=== PATIENT | male | born 1940 | race Caucasian/White ===

== ENCOUNTER → 2020-06-29 | Outpatient (CLI) | payer OTHER ==
[~2020-06-29] MED LIST: ALDACTONE25 MG PO; ATENOLOL50 MG PO; BUSPAR 10MG10 MG PO; CATAPRES0.2 MG PO; ELIQUIS2.5 MG PO; ELIQUIS5 MG PO; FLOMAX 0.4 MG0.4 MG PO; HYDRALAZINE HC100 MG PO; HYDRALAZINE HCL25 MG PO; ISOSORBIDE MONO30 MG PO; LEXAPRO TAB 1010 MG PO; LISINOPRIL2.5 MG PO; MIRAPEX0.25 MG PO; NORCO 5-325 TA1 EACH PO; NOVOLOG FL100 UNIT/1 INJ; NOVOLOG FL100 UNIT/1 SC; PRIMIDONE50 MG PO; PROSCAR 5 MG TAB5 MG PO; SODIUM BICARBO650 M1 PO; SYNTHROID50 MCG PO; TENORMIN50 MG PO; TRESIBA SC; TRESIBA100 UNIT/1 SQ; VIBRAMYCIN 100100 MG PO
[2020-06-29 09:37] LABS: HEMOGLOBIN 13.6 gm/dl (14.0-17.5); RED BLOOD COUNT 4.09 M/UL (4.20-5.50)
[2020-06-30 11:14] LABS: CREATININE, URINE 133.2 mg/dL (Not Estab.)
== END ==
LOC: LAB 08:47
PROVIDERS: Nurse Practitioner Family
DX: Z12.5 Encounter for screening for malignant neoplasm of prostate (principal); E11.22 Type 2 diabetes mellitus with diabetic chronic kidney disease; I12.9 Hypertensive chronic kidney disease with stage 1 through stage 4 chronic kidney disease, or unspecified chronic kidney disease; N18.9 Chronic kidney disease, unspecified; I48.91 Unspecified atrial fibrillation; E03.9 Hypothyroidism, unspecified
CPT/HCPCS: 36415; 80053; 80061; 82043; 82570; 83036; 83970; 84436; 84443; 84480; 85025; G0103

== ENCOUNTER → 2020-07-09 | Outpatient (CLI) | payer OTHER ==
[2020-07-10 10:13] LABS: CREATININE, URINE 104.4 mg/dL (Not Estab.)
== END ==
LOC: LAB 10:10
PROVIDERS: Nurse Practitioner Family
DX: E87.6 Hypokalemia (principal); N18.30 Chronic kidney disease, stage 3 unspecified; E21.3 Hyperparathyroidism, unspecified; N25.81 Secondary hyperparathyroidism of renal origin
CPT/HCPCS: 36415; 80069; 82043; 82570; 83970; 84156

== ENCOUNTER → 2020-08-25 | Outpatient (CLI) | payer OTHER | LOC: RAD 09:25 | DX: M25.562 Pain in left knee (principal); M25.561 Pain in right knee; R60.0 Localized edema; M17.0 Bilateral primary osteoarthritis of knee | CPT/HCPCS: 73564 ==

== ENCOUNTER → 2020-10-07 | Outpatient (CLI) | payer OTHER ==
[2020-10-08 11:13] LABS: CREATININE, URINE 58.7 mg/dL (Not Estab.)
== END ==
LOC: LAB 07:10
PROVIDERS: Internal Medicine Nephrology
DX: N18.30 Chronic kidney disease, stage 3 unspecified (principal)
CPT/HCPCS: 36415; 80069; 82043; 82570; 84156

== ENCOUNTER → 2020-10-22 | Outpatient (CLI) | payer OTHER ==
[2020-10-22 09:17] LABS: HEMOGLOBIN 13.3 gm/dl (14.0-17.5); RED BLOOD COUNT 3.97 M/UL (4.20-5.50); WHITE BLOOD COUNT 6.7 K/UL (4.5-11.0)
[2020-10-23 07:11] LABS: THYROXINE (T4) 5.9 ug/dL (4.5-12.0); VITAMIN D, 25-HYDROXY 19.1 ng/mL (30.0-100.0)
[2020-10-23 10:14] LABS: CREATININE, URINE 74.7 mg/dL (Not Estab.)
== END ==
LOC: LAB 08:10
PROVIDERS: Nurse Practitioner Family
DX: I12.9 Hypertensive chronic kidney disease with stage 1 through stage 4 chronic kidney disease, or unspecified chronic kidney disease (principal); E11.22 Type 2 diabetes mellitus with diabetic chronic kidney disease; N18.30 Chronic kidney disease, stage 3 unspecified; E11.65 Type 2 diabetes mellitus with hyperglycemia; E11.649 Type 2 diabetes mellitus with hypoglycemia without coma; Z12.5 Encounter for screening for malignant neoplasm of prostate; I48.91 Unspecified atrial fibrillation; E87.6 Hypokalemia; E03.9 Hypothyroidism, unspecified; R60.9 Edema, unspecified
CPT/HCPCS: 36415; 80053; 80061; 81001; 82043; 82570; 83036; 84436; 84443; 84480; 85025; G0103

== ENCOUNTER → 2021-01-07 | Outpatient (CLI) | payer OTHER ==
[2021-01-08 13:14] LABS: CREATININE, URINE 52.9 mg/dL (Not Estab.)
== END ==
LOC: LAB 07:13
PROVIDERS: Internal Medicine Nephrology
DX: N18.30 Chronic kidney disease, stage 3 unspecified (principal)
CPT/HCPCS: 36415; 80069; 82043; 82570; 84156

== ENCOUNTER 2021-03-23 10:33 | Emergency (ER) | payer OTHER ==
[2021-03-23 12:23] LABS: HEMOGLOBIN 15.6 gm/dl (14.0-17.5); RED BLOOD COUNT 4.62 M/UL (4.20-5.50); WHITE BLOOD COUNT 10.1 K/UL (4.5-11.0)
[2021-03-23 12:47] LABS: BUN/CREATININE RATIO 13 (0-10)
== END 2021-03-23 14:03 | disposition home or self-care (01) ==
LOC: ER1 10:33
PROVIDERS: Physician Assistant
DX: R07.9 Chest pain, unspecified (principal); I48.91 Unspecified atrial fibrillation; E03.9 Hypothyroidism, unspecified; I12.9 Hypertensive chronic kidney disease with stage 1 through stage 4 chronic kidney disease, or unspecified chronic kidney disease; E11.22 Type 2 diabetes mellitus with diabetic chronic kidney disease; E78.5 Hyperlipidemia, unspecified; N18.9 Chronic kidney disease, unspecified; Z90.49 Acquired absence of other specified parts of digestive tract; Z79.899 Other long term (current) drug therapy
CPT/HCPCS: 71045; 80053; 82550; 82553; 83874; 84484; 85025; 93005; 99285

== ENCOUNTER → 2021-04-09 | Outpatient (CLI) | payer OTHER ==
[2021-04-09 08:24] LABS: HEMOGLOBIN 14.1 gm/dl (14.0-17.5); RED BLOOD COUNT 4.37 M/UL (4.20-5.50); WHITE BLOOD COUNT 8.8 K/UL (4.5-11.0)
== END ==
LOC: LAB 07:15
PROVIDERS: Internal Medicine Cardiovascular Disease
DX: I47.1 Supraventricular tachycardia (principal); R00.2 Palpitations
CPT/HCPCS: 36415; 80048; 85025

== ENCOUNTER → 2021-04-30 | Outpatient (CLI) | payer OTHER ==
[~2021-04-30] MED LIST changes: +SOTALOL80 MG PO; +TOPROL XL25 MG PO
[2021-04-30 09:43] LABS: HEMOGLOBIN 13.6 gm/dl (14.0-17.5); RED BLOOD COUNT 4.01 M/UL (4.20-5.50); WHITE BLOOD COUNT 7.9 K/UL (4.5-11.0)
[2021-05-01 08:13] LABS: THYROXINE (T4) 6.4 ug/dL (4.5-12.0)
[2021-05-01 10:13] LABS: CREATININE, URINE 108.3 mg/dL (Not Estab.)
== END ==
LOC: LAB 08:29
PROVIDERS: Nurse Practitioner Family
DX: E11.22 Type 2 diabetes mellitus with diabetic chronic kidney disease (principal); N18.30 Chronic kidney disease, stage 3 unspecified; E03.9 Hypothyroidism, unspecified
CPT/HCPCS: 36415; 80053; 80061; 81001; 82043; 82570; 83036; 84436; 84443; 84480; 85025

== ENCOUNTER 2021-05-04 08:27 | Outpatient (CLI) | payer OTHER ==
[~2021-05-04 08:27] MED LIST changes: -SOTALOL80 MG PO; -TOPROL XL25 MG PO
[2021-05-04] MEDS ORDERED: TOPROL XL25 MG PO (09:26)
[2021-05-04] MEDS ORDERED: SOTALOL80 MG PO ×2 (13:45→14:57)
== END 2021-05-04 20:45 | disposition home or self-care (01) ==
LOC: CATH 08:27 → M/S 16:23 → CATH 20:45
DX: I47.1 Supraventricular tachycardia (principal); I49.5 Sick sinus syndrome; I10 Essential (primary) hypertension; I48.91 Unspecified atrial fibrillation
CPT/HCPCS: 82962; 93620; 93623; 99152; 99153; C1730; C1766; J0461; J1644; J2250; J3010; J7040

== ENCOUNTER 2021-05-15 23:51 | Emergency (ER) | payer OTHER ==
[~2021-05-15 23:51] MED LIST changes: +SOTALOL80 MG PO; +TOPROL XL25 MG PO
[2021-05-16 00:56] LABS: HEMOGLOBIN 14.1 gm/dl (14.0-17.5); RED BLOOD COUNT 4.2 M/UL (4.20-5.50); WHITE BLOOD COUNT 10.6 K/UL (4.5-11.0)
== END 2021-05-16 05:06 | disposition home or self-care (01) ==
LOC: ER1 23:51
PROVIDERS: Physician Assistant Medical
DX: N28.89 Other specified disorders of kidney and ureter (principal); E11.9 Type 2 diabetes mellitus without complications; I10 Essential (primary) hypertension; F17.220 Nicotine dependence, chewing tobacco, uncomplicated; Z79.01 Long term (current) use of anticoagulants
CPT/HCPCS: 80053; 81001; 82272; 83605; 85025; 85610; 93005; 99284; C9113

== ENCOUNTER 2021-05-16 15:14 | Emergency (ER) | payer OTHER ==
[2021-05-16 15:56] LABS: HEMOGLOBIN 13.8 gm/dl (14.0-17.5); RED BLOOD COUNT 4.07 M/UL (4.20-5.50); WHITE BLOOD COUNT 9.7 K/UL (4.5-11.0)
== END 2021-05-16 16:11 | disposition home or self-care (01) ==
LOC: ER1 15:14
PROVIDERS: Physician Assistant
DX: R31.0 Gross hematuria (principal); R33.9 Retention of urine, unspecified; R10.9 Unspecified abdominal pain; Z90.49 Acquired absence of other specified parts of digestive tract
CPT/HCPCS: 71045; 80053; 85025; 99284

== ENCOUNTER → 2021-06-16 | Outpatient (CLI) | payer OTHER ==
[2021-06-17 08:13] LABS: THYROXINE (T4) 6.3 ug/dL (4.5-12.0)
== END ==
LOC: LAB 08:02
PROVIDERS: Internal Medicine Nephrology; Nurse Practitioner Family
DX: E03.9 Hypothyroidism, unspecified (principal); N18.4 Chronic kidney disease, stage 4 (severe)
CPT/HCPCS: 36415; 80053; 82570; 83970; 84100; 84156; 84436; 84443; 84480

== ENCOUNTER 2021-07-03 04:59 | Emergency (ER) | payer OTHER ==
[2021-07-03 06:13] LABS: HEMOGLOBIN 10.6 gm/dl (14.0-17.5); RED BLOOD COUNT 3.2 M/UL (4.20-5.50); WHITE BLOOD COUNT 8.8 K/UL (4.5-11.0)
[2021-07-03] MEDS ORDERED: CEPHALEXIN500 MG PO (07:05)
== END 2021-07-03 07:25 | disposition home or self-care (01) ==
LOC: ER1 04:59
PROVIDERS: Family Medicine
DX: T83.091A Other mechanical complication of indwelling urethral catheter, initial encounter (principal); N18.9 Chronic kidney disease, unspecified; R31.9 Hematuria, unspecified; D64.9 Anemia, unspecified; X58.XXXA Exposure to other specified factors, initial encounter
CPT/HCPCS: 51702; 80053; 81001; 85025; 85610; 87086; 99283

== ENCOUNTER → 2021-07-04 | Emergency (ER) | payer OTHER ==
[~2021-07-04] MED LIST changes: +CEPHALEXIN500 MG PO
== END | disposition home or self-care (01) ==
LOC: ER1 23:16
DX: T83.091A Other mechanical complication of indwelling urethral catheter, initial encounter (principal); R31.9 Hematuria, unspecified; N18.9 Chronic kidney disease, unspecified; R33.9 Retention of urine, unspecified
CPT/HCPCS: 99283

== ENCOUNTER 2021-07-17 20:15 | Emergency (ER) | payer OTHER ==
[~2021-07-17 20:15] MED LIST changes: -NOVOLOG FL100 UNIT/1 SC; -SYNTHROID50 MCG PO; -TRESIBA SC
[2021-07-17 21:32] LABS: HEMOGLOBIN 11.6 gm/dl (14.0-17.5); RED BLOOD COUNT 3.58 M/UL (4.20-5.50); WHITE BLOOD COUNT 8.3 K/UL (4.5-11.0)
[2021-07-21] MEDS ORDERED: SYNTHROID75 MCG PO (13:02)
== END 2021-07-17 22:51 | disposition left against medical advice (07) ==
LOC: ER1 20:15
PROVIDERS: Emergency Medicine
DX: R19.09 Other intra-abdominal and pelvic swelling, mass and lump (principal); I11.9 Hypertensive heart disease without heart failure; E11.9 Type 2 diabetes mellitus without complications
CPT/HCPCS: 80053; 81001; 85025; 99281

== ENCOUNTER 2021-07-21 13:20 | Inpatient (IN) | payer OTHER ==
[~2021-07-21] VITALS: Ht 177.8 cm; Wt 120.9 kg
[~2021-07-21 13:20] MED LIST changes: +SYNTHROID75 MCG PO
[2021-07-21] MEDS ORDERED: NOVOLOG FL100 UNIT/1 SC (13:25)
[2021-07-21] MEDS ORDERED: TRESIBA FL100 UNIT/1 INJ (13:30)
[2021-07-21 14:04] LABS: HEMOGLOBIN 11.2 gm/dl (14.0-17.5); RED BLOOD COUNT 3.48 M/UL (4.20-5.50); WHITE BLOOD COUNT 6.9 K/UL (4.5-11.0)
[2021-07-21] MEDS ORDERED: PROTONIX40 MG PO (18:49)
[2021-07-21] MEDS ORDERED: SUCRALFATE1 GM/10 ML PO (18:49)
[2021-07-21] MEDS ORDERED: KLONOPIN0.5 MG PO (18:50)
[2021-07-21] MEDS ORDERED: CLONIDINE HCL0.2 MG PO (18:50)
[2021-07-21] MEDS ORDERED: ZOFRAN ODT 4 MG4 MG PO (18:51)
[2021-07-21] MEDS ORDERED: TYLENOL EXTRA500 MG PO (18:51)
[2021-07-22 03:24] LABS: HEMOGLOBIN 10.9 gm/dl (14.0-17.5); RED BLOOD COUNT 3.41 M/UL (4.20-5.50); WHITE BLOOD COUNT 6.9 K/UL (4.5-11.0)
[2021-07-22 04:12] LABS: BUN/CREATININE RATIO 12 (0-10)
[2021-07-22 15:55] LABS: BODY FLUID SOURCE PLEURAL; RBC (AUTOMATED) 400 (0-100000); WBC (AUTOMATED) 268 (0-500)
[2021-07-22 15:56] LABS: MONONUCLEAR CELLS 94.8 (75-100); POLYMORPHONUCLEAR % 5.2 (0-25)
[2021-07-22 17:54] LABS: LDH, BODY FLUID 93 U/L; TOTAL PROTEIN, BODY FLUID 1.9 gm/dL
--- NOTE | 2021-07-22 18:55 | NUR ---
07/22/21 1850 REPORT CALLED TO CHRISTELLE TO BE TRANSFERRED TO ROOM 4103
--- NOTE | 2021-07-23 02:37 | NUR ---
07/22/2021 @ APPROX. 19:45- MD Colon calls this RN, asking why he is consulted. RN states it is related to the hematuria and CKD, informs MD of patient creatinine. states the hematuria is urology not nephrology. Urology is not provided inpatient at this facility. 07/22/2021 @ APPROX. 23:30 - This RN notified MD Diaz of patient's hematuria, including past medical hx and hgb level. Obtained orders to hold any blood thinners and recheck hemoglobin level at 07/23/2021 @ 02:00.
[2021-07-23 03:51] LABS: RED BLOOD COUNT 3.47 M/UL (4.20-5.50)
[2021-07-23 04:16] LABS: WHITE BLOOD COUNT 8.8 K/UL (4.5-11.0)
--- NOTE | 2021-07-23 11:04 | NUR ---
1104- NOTIFIED OF CONTINUED BLOOD IN CATHETAR AND BREIF WITH CLOTS. PT STABLE AT THIS TIME. LAST HEMOGLOBIN REPORTED TO . NEW ORDERS NOTED.
[2021-07-24 04:52] LABS: HEMOGLOBIN 10.1 gm/dl (14.0-17.5); RED BLOOD COUNT 3.22 M/UL (4.20-5.50); WHITE BLOOD COUNT 7.9 K/UL (4.5-11.0)
[2021-07-24] MEDS ORDERED: LEVOFLOXACIN500 MG PO ×2 (13:55→13:59)
--- NOTE | 2021-07-24 15:31 | NUR ---
1530- CT OF CHEST ORDERED NOT PERFORMED UPON DISCHARGE. VERFIED WITH DR. GARETT JEFFERSON TO LET PT LEAVE WITHOUT CT.
== END 2021-07-24 16:24 | disposition home or self-care (01) | DRG 291 ==
LOC: ER1 13:20 → 3 EAST 16:33 → CDU 16:33 → 3 EAST 07-22 01:50 → MED SURG 4 07-22 19:22
PROVIDERS: Internal Medicine; Internal Medicine Nephrology; Physician Assistant Medical; Preventive Medicine Occupational Medicine; ADMIT Internal Medicine
PROC: B24BZZ4 Ultrasonography of Heart with Aorta, Transesophageal (ICD-10-PCS; 2021-07-22)
PROC: 0W993ZZ Drainage of Right Pleural Cavity, Percutaneous Approach (ICD-10-PCS; principal; 2021-07-23)
DX: I13.0 Hypertensive heart and chronic kidney disease with heart failure and stage 1 through stage 4 chronic kidney disease, or unspecified chronic kidney disease (principal); I50.33 Acute on chronic diastolic (congestive) heart failure; J96.01 Acute respiratory failure with hypoxia; Z20.822 Contact with and (suspected) exposure to COVID-19; J98.11 Atelectasis; N17.9 Acute kidney failure, unspecified; N30.01 Acute cystitis with hematuria; J90 Pleural effusion, not elsewhere classified; I45.81 Long QT syndrome; N28.89 Other specified disorders of kidney and ureter; G25.81 Restless legs syndrome; E03.9 Hypothyroidism, unspecified; I48.91 Unspecified atrial fibrillation; E78.5 Hyperlipidemia, unspecified; E11.22 Type 2 diabetes mellitus with diabetic chronic kidney disease; N13.9 Obstructive and reflux uropathy, unspecified; B96.5 Pseudomonas (aeruginosa) (mallei) (pseudomallei) as the cause of diseases classified elsewhere; D63.1 Anemia in chronic kidney disease; E66.01 Morbid (severe) obesity due to excess calories; N18.30 Chronic kidney disease, stage 3 unspecified; Z85.53 Personal history of malignant neoplasm of renal pelvis; Z90.5 Acquired absence of kidney; Z79.4 Long term (current) use of insulin; Z85.46 Personal history of malignant neoplasm of prostate; Z79.01 Long term (current) use of anticoagulants; Z90.49 Acquired absence of other specified parts of digestive tract; Z68.34 Body mass index [BMI] 34.0-34.9, adult
CPT/HCPCS: ECHO; 36415; 71045; 71046; 80048; 80053; 81001; 82550; 82553; 82945; 82962; 83540; 83550; 83605; 83615; 83735; 83874; 83880; 83986; 84157; 84484; 85018; 85025; 85027; 85384; 85610; 85652; 85730; 86140; 87040; 87070; 87077; 87081; 87086; 87186; 87205; 89051; 93005; 93306; 94760; 99285; A4340; J0696; J1940; J2543; U0002

== ENCOUNTER 2021-08-04 14:03 | Emergency (ER) | payer OTHER ==
[~2021-08-04 14:03] MED LIST changes: +CLONIDINE HCL0.2 MG PO; +KLONOPIN0.5 MG PO; +LEVOFLOXACIN500 MG PO; +NOVOLOG FL100 UNIT/1 SC; +PROTONIX40 MG PO; +SUCRALFATE1 GM/10 ML PO; +TRESIBA FL100 UNIT/1 INJ; +TYLENOL EXTRA500 MG PO; +ZOFRAN ODT 4 MG4 MG PO
[2021-08-04 18:50] LABS: HEMOGLOBIN 10.5 gm/dl (14.0-17.5); RED BLOOD COUNT 3.47 M/UL (4.20-5.50); WHITE BLOOD COUNT 7.9 K/UL (4.5-11.0)
== END 2021-08-04 22:46 | disposition home or self-care (01) ==
LOC: ER1 14:03
PROVIDERS: Emergency Medicine
DX: R31.9 Hematuria, unspecified (principal); I10 Essential (primary) hypertension; E11.9 Type 2 diabetes mellitus without complications
CPT/HCPCS: 51702; 80053; 81001; 85025; 85610; 85730; 99283

== ENCOUNTER 2021-08-07 16:22 | Emergency (ER) | payer OTHER ==
[~2021-08-07] VITALS: Ht 177.8 cm; Wt 120.7 kg
[2021-08-07 18:16] LABS: HEMOGLOBIN 9.2 gm/dl (14.0-17.5); WHITE BLOOD COUNT 7.7 K/UL (4.5-11.0)
[2021-08-07 18:17] LABS: RED BLOOD COUNT 2.98 M/UL (4.20-5.50)
[2021-08-08 02:24] LABS: HEMOGLOBIN 10.3 gm/dl (14.0-17.5); WHITE BLOOD COUNT 9.5 K/UL (4.5-11.0)
[2021-08-08 02:25] LABS: RED BLOOD COUNT 3.31 M/UL (4.20-5.50)
[2021-08-08 09:11] LABS: HEMOGLOBIN 10.1 gm/dl (14.0-17.5); RED BLOOD COUNT 3.21 M/UL (4.20-5.50)
[2021-08-08 19:08] LABS: HEMOGLOBIN 10.5 gm/dl (14.0-17.5)
[2021-08-09 16:35] LABS: HEMOGLOBIN 10.1 gm/dl (14.0-17.5)
== END 2021-08-09 17:45 | disposition other institution (70) ==
LOC: ER1 16:22
PROVIDERS: Emergency Medicine; Internal Medicine
DX: N18.9 Chronic kidney disease, unspecified (principal); N13.2 Hydronephrosis with renal and ureteral calculous obstruction; R31.0 Gross hematuria; Z20.822 Contact with and (suspected) exposure to COVID-19; Z85.528 Personal history of other malignant neoplasm of kidney; Z85.46 Personal history of malignant neoplasm of prostate
CPT/HCPCS: 36415; 80048; 80053; 81001; 82962; 83036; 83735; 85014; 85018; 85025; 85610; 85730; 96374; 96376; 99283; J2543; U0002

== ENCOUNTER 2021-08-26 11:55 | Observation (INO) | payer OTHER ==
[~2021-08-26] VITALS: Ht 177.8 cm; Wt 129.2 kg
[~2021-08-26 11:55] MED LIST changes: -BUSPAR 10MG10 MG PO; +BUSPIRONE HCL5 MG PO; -NOVOLOG FL100 UNIT/1 SC; +NOVOLOG FL100 UNIT/1 SQ; -TRESIBA FL100 UNIT/1 INJ; +TRESIBA FL100 UNIT/1 SQ
[2021-08-26 13:10] LABS: HEMOGLOBIN 7.9 gm/dl (14.0-17.5); RED BLOOD COUNT 2.75 M/UL (4.20-5.50)
[2021-08-26] MEDS ORDERED: LEVOFLOXACIN500 MG PO (15:41)
[2021-08-26] MEDS ORDERED: OXYCODONE HCL10 MG PO (15:41)
[2021-08-27 03:11] LABS: HEMOGLOBIN 7.2 gm/dl (14.0-17.5); RED BLOOD COUNT 2.55 M/UL (4.20-5.50); WHITE BLOOD COUNT 7.4 K/UL (4.5-11.0)
[2021-08-28 04:01] LABS: HEMOGLOBIN 7.3 gm/dl (14.0-17.5); RED BLOOD COUNT 2.57 M/UL (4.20-5.50); WHITE BLOOD COUNT 7.4 K/UL (4.5-11.0)
[2021-08-29 03:41] LABS: HEMOGLOBIN 7.3 gm/dl (14.0-17.5); RED BLOOD COUNT 2.63 M/UL (4.20-5.50); WHITE BLOOD COUNT 6.9 K/UL (4.5-11.0)
[2021-08-29] MEDS ORDERED: BUMETANIDE1 MG PO (11:59)
== END 2021-08-29 13:00 | disposition home or self-care (01) ==
LOC: ER1 11:55 → CDU 14:11 → MED SURG 4 14:11
PROVIDERS: Internal Medicine Nephrology; Physician Assistant; Physician Assistant Medical; ADMIT Internal Medicine
DX: I13.0 Hypertensive heart and chronic kidney disease with heart failure and stage 1 through stage 4 chronic kidney disease, or unspecified chronic kidney disease (principal); N17.9 Acute kidney failure, unspecified; N18.4 Chronic kidney disease, stage 4 (severe); I50.33 Acute on chronic diastolic (congestive) heart failure; E11.22 Type 2 diabetes mellitus with diabetic chronic kidney disease; N04.9 Nephrotic syndrome with unspecified morphologic changes; C64.2 Malignant neoplasm of left kidney, except renal pelvis; C61 Malignant neoplasm of prostate; D63.1 Anemia in chronic kidney disease; E78.5 Hyperlipidemia, unspecified; I48.91 Unspecified atrial fibrillation; E03.9 Hypothyroidism, unspecified; G25.81 Restless legs syndrome; E66.01 Morbid (severe) obesity due to excess calories; Z68.41 Body mass index [BMI] 40.0-44.9, adult; Z20.822 Contact with and (suspected) exposure to COVID-19; Z79.4 Long term (current) use of insulin; Z79.899 Other long term (current) drug therapy; Z80.42 Family history of malignant neoplasm of prostate; Z80.0 Family history of malignant neoplasm of digestive organs
CPT/HCPCS: 36415; 71045; 80048; 80053; 82550; 82553; 82728; 82962; 83540; 83550; 83735; 83880; 84484; 85007; 85025; 85027; 93005; 96372; 96374; 96375; 96376; 99285; G0378; J1650; J1756; J1940; U0002

== ENCOUNTER → 2021-10-20 | Outpatient (CLI) | payer OTHER ==
[~2021-10-20] MED LIST changes: +BUMETANIDE1 MG PO; +OXYCODONE HCL10 MG PO
[2021-10-20 08:14] LABS: RED BLOOD COUNT 3.86 M/UL (4.20-5.50); WHITE BLOOD COUNT 6.8 K/UL (4.5-11.0)
== END ==
LOC: LAB 07:23
PROVIDERS: Internal Medicine Nephrology; Physician Assistant
DX: I12.9 Hypertensive chronic kidney disease with stage 1 through stage 4 chronic kidney disease, or unspecified chronic kidney disease (principal); N18.4 Chronic kidney disease, stage 4 (severe); D63.1 Anemia in chronic kidney disease; D50.0 Iron deficiency anemia secondary to blood loss (chronic); I20.9 Angina pectoris, unspecified; I48.91 Unspecified atrial fibrillation; R00.2 Palpitations; R06.00 Dyspnea, unspecified; R00.0 Tachycardia, unspecified; R60.9 Edema, unspecified
CPT/HCPCS: 36415; 80053; 82728; 83540; 83550; 83735; 84100; 85025

== ENCOUNTER 2021-11-09 20:38 | Emergency (ER) | payer OTHER ==
[2021-11-09 21:54] LABS: HEMOGLOBIN 11.8 gm/dl (14.0-17.5); RED BLOOD COUNT 4.1 M/UL (4.20-5.50); WHITE BLOOD COUNT 14.5 K/UL (4.5-11.0)
[2021-11-10] MEDS ORDERED: PERCOCET 5/325 T1 EA PO (00:33)
[2021-11-10] MEDS ORDERED: OMNICEF 300 MG300 MG PO (00:36)
== END 2021-11-10 01:00 | disposition home or self-care (01) ==
LOC: ER1 20:38
PROVIDERS: Physician Assistant
DX: N39.0 Urinary tract infection, site not specified (principal); I10 Essential (primary) hypertension; I48.92 Unspecified atrial flutter; Z85.528 Personal history of other malignant neoplasm of kidney; Z90.49 Acquired absence of other specified parts of digestive tract
CPT/HCPCS: 80053; 81001; 82550; 82553; 84484; 85025; 96374; 96375; 99284; J0696; J2270; J2405

== ENCOUNTER 2021-11-12 16:47 | Emergency (ER) | payer OTHER ==
[~2021-11-12 16:47] MED LIST changes: +OMNICEF 300 MG300 MG PO; +PERCOCET 5/325 T1 EA PO
[2021-11-12 17:19] LABS: WHITE BLOOD COUNT 11.6 K/UL (4.5-11.0)
[2021-11-12 17:21] LABS: HEMOGLOBIN 9.5 gm/dl (14.0-17.5); RED BLOOD COUNT 3.28 M/UL (4.20-5.50)
== END 2021-11-12 22:52 | disposition short-term general hospital (02) ==
LOC: ER1 16:47
PROVIDERS: Emergency Medicine
DX: N39.0 Urinary tract infection, site not specified (principal); I12.9 Hypertensive chronic kidney disease with stage 1 through stage 4 chronic kidney disease, or unspecified chronic kidney disease; N17.9 Acute kidney failure, unspecified; N18.9 Chronic kidney disease, unspecified; E11.22 Type 2 diabetes mellitus with diabetic chronic kidney disease; Z85.46 Personal history of malignant neoplasm of prostate; Z85.528 Personal history of other malignant neoplasm of kidney; Z20.822 Contact with and (suspected) exposure to COVID-19
CPT/HCPCS: 70450; 71045; 80053; 81001; 82550; 82553; 82962; 84484; 85025; 85610; 85730; 87040; 87086; 93005; 96374; 99285; J0696; U0002

== ENCOUNTER → 2022-01-21 | Outpatient (CLI) | payer OTHER ==
[2022-01-21 09:57] LABS: HEMOGLOBIN 11.2 gm/dl (14.0-17.5); RED BLOOD COUNT 3.64 M/UL (4.20-5.50); WHITE BLOOD COUNT 9.7 K/UL (4.5-11.0)
[2022-01-22 07:11] LABS: VITAMIN D, 25-HYDROXY 23.6 ng/mL (30.0-100.0)
[2022-01-22 08:13] LABS: THYROXINE (T4) 6.7 ug/dL (4.5-12.0)
[2022-01-22 09:13] LABS: CREATININE, URINE 41.4 mg/dL (Not Estab.)
== END ==
LOC: LAB 09:13
PROVIDERS: Internal Medicine Nephrology; Nurse Practitioner Family
DX: I12.9 Hypertensive chronic kidney disease with stage 1 through stage 4 chronic kidney disease, or unspecified chronic kidney disease (principal); E11.22 Type 2 diabetes mellitus with diabetic chronic kidney disease; N18.4 Chronic kidney disease, stage 4 (severe); D50.9 Iron deficiency anemia, unspecified; K21.9 Gastro-esophageal reflux disease without esophagitis; E78.5 Hyperlipidemia, unspecified; Z12.5 Encounter for screening for malignant neoplasm of prostate; E03.9 Hypothyroidism, unspecified; E55.9 Vitamin D deficiency, unspecified; M10.9 Gout, unspecified
CPT/HCPCS: 36415; 80053; 80061; 81001; 82043; 82570; 82728; 83036; 83540; 83550; 84156; 84436; 84443; 84480; 84550; 85025; G0103

== ENCOUNTER → 2022-03-25 | Outpatient (CLI) | payer OTHER | LOC: LAB 08:53 | PROVIDERS: Internal Medicine Nephrology | DX: E87.5 Hyperkalemia (principal) | CPT/HCPCS: 36415; 80048 ==